=== PATIENT | male | born 1990 | race Two or more races ===

== ENCOUNTER → 2022-03-01 | Outpatient (CLI) | payer OTHER | LOC: M PLAIMG 10:02 | PROVIDERS: ATTEND Physician Assistant | DX: S76.111A Strain of right quadriceps muscle, fascia and tendon, initial encounter (principal); N43.3 Hydrocele, unspecified; Y93.B9 Activity, other involving muscle strengthening exercises; X58.XXXA Exposure to other specified factors, initial encounter; Y92.9 Unspecified place or not applicable; Y99.9 Unspecified external cause status ==

== ENCOUNTER 2023-04-08 13:18 | Emergency (ER) | payer OTHER ==
[~2023-04-08] VITALS: Ht 185.4 cm; Wt 95.5 kg
[2023-04-08 14:21] VITALS: BP 134/77; TEMP 97.8; O2SAT 97
== END 2023-04-08 14:50 | disposition home or self-care (01) ==
LOC: M ED 13:18
DX: S86.002A Unspecified injury of left Achilles tendon, initial encounter (principal); Y92.9 Unspecified place or not applicable; Y93.66 Activity, soccer; Y99.9 Unspecified external cause status

== ENCOUNTER 2023-04-12 10:26 | Day surgery (SDC) | payer OTHER ==
[~2023-04-12] VITALS: Ht 185.4 cm; Wt 94.4 kg
[~2023-04-12 10:26] MED LIST: LIDOCAINE 2% 100MG/5ML SDV (FOR ANES.) As Ordered ONE; ONDANSETRON 4MG 2ML VIAL As Ordered ONE; ROCURONIUM BROMIDE 50MG/5ML VIAL As Ordered ONE; SUGAMMADEX SODIUM 500 MG/5 ML VIAL (BRIDION) As Ordered ONE; propofoL 200 MG/20 ML VIAL As Ordered ONE
[2023-04-12] MEDS ORDERED: fentaNYL 250 MCG/5 ML INJECTION As Ordered ONE (10:36)
[2023-04-12] MEDS ORDERED: MIDAZOLAM INJ 2MG/2ML VIAL As Ordered ONE (10:36)
[2023-04-12] MEDS ORDERED: ceFAZolin SOD 2 GM in IV 1 EA IV ONE (11:05)
[2023-04-12] MEDS: LR 1,000 ML IV SCH (11:17)
[2023-04-12] MEDS ORDERED: ACETAMINOPHEN 1000MG 100ML IV BAG As Ordered ONE (11:47)
[2023-04-12] MEDS ORDERED: dexmedeTOMIDine (4MCG/ML)200MCG/50ML BTL (PRECEDEX) As Ordered ONE (11:58)
[2023-04-12] MEDS: LIDOCAINE W/EPINEPHRINE 1% 20ML VIAL As Ordered ONE (12:02)
[2023-04-12] MEDS ORDERED: GLYCOPYRROLATE INJ 0.2 MG/ML 2 ML VIAL As Ordered ONE (12:28)
[2023-04-12] MEDS ORDERED: HYDROmorphone HCL 2MG/ML 1ML VIAL As Ordered ONE (12:32)
[2023-04-12] MEDS ORDERED: KETOROLAC 60MG 2ML VIAL As Ordered ONE (13:05)
[2023-04-12] MEDS ORDERED: fentaNYL 100 MCG/2 ML INJECTION IV PRN (14:05)
[2023-04-12] MEDS: oxyCODONE 5MG TAB PO PRN (14:37)
[2023-04-12] MEDS: HYDROMORPHONE HCL 0.5 MG/ 0.5 ML SYRINGE IV PRN (14:47)
[2023-04-12] MEDS: ONDANSETRON 4MG 2ML VIAL IV PRN (16:06)
[2023-04-12 16:20] VITALS: BP 120/59; TEMP 98; O2SAT 98
== END 2023-04-12 16:25 | disposition home or self-care (01) ==
LOC: M SDC 10:26
PROVIDERS: ATTEND Student in an Organized Health Care Education/Training Program
DX: S86.002A Unspecified injury of left Achilles tendon, initial encounter (principal); Y93.66 Activity, soccer; Y92.322 Soccer field as the place of occurrence of the external cause; Y99.9 Unspecified external cause status; F41.9 Anxiety disorder, unspecified; F43.10 Post-traumatic stress disorder, unspecified
CPT/HCPCS: 27650; C1713; J0131; J0665; J1100; J1170; J1885; J2250; J2405; J3010

== ENCOUNTER → 2023-11-11 | Outpatient (REF) | payer OTHER ==
[2023-11-11 22:00] LABS: APPEARANCE, URINE CLEAR (CLEAR); BACTERIA, URINE AUTO NEGATIVE (NEGATIVE); BILIRUBIN, URINE AUTO NEGATIVE (NEGATIVE); BLOOD, URINE BLOOD NEGATIVE (NEGATIVE); COLOR, URINE YELLOW (YELLOW); GLUCOSE, URINE (UA) AUTO NEGATIVE (NEGATIVE); KETONE, URINE AUTO NEGATIVE (NEGATIVE); LEUKOCYTE ESTERASE, URINE AUTO NEGATIVE (NEGATIVE); NITRITE, URINE AUTO NEGATIVE (NEGATIVE); PROTEIN, URINE AUTO NEGATIVE (NEGATIVE); RBC, URINE AUTO 0 /HPF (0-3); SPECIFIC GRAVITY URINE AUTO 1.015 (1.002-1.035); SQUAMOUS EPITHELIAL CELL UR AU 0 /HPF (0-6); UROBILINOGEN, URINE AUTO 0.2 mg/dL (0.0-2.0); WBC, URINE AUTO 0 /HPF (0-3)
[2023-11-11 23:07] LABS: Trichomonas vaginalis (AMP) NOT DETECTED (NEGATIVE)
[2023-11-11 23:31] LABS: GC DNA AMPLIFICATION NEGATIVE (NEGATIVE)
== END ==
LOC: M LAB REF 13:45
PROVIDERS: ATTEND Physician Assistant Medical
DX: Z20.828 Contact with and (suspected) exposure to other viral communicable diseases (principal)

== ENCOUNTER → 2023-12-07 | Outpatient (REF) | LOC: M PLAIMG 09:18 | PROVIDERS: ATTEND Internal Medicine | DX: R52 Pain, unspecified (principal) ==